=== PATIENT | male | born 2000 | race Caucasian/White ===

== ENCOUNTER 2025-06-24 15:53 | Emergency (ER) | payer OTHER, SELFPAY ==
[2025-06-24 16:06] VITALS: BP 124/73; PULSE 94; RESP 12; TEMP 37.1; O2SAT 99; BMI 19.5
--- NOTE | 2025-06-24 16:13 | ED.MALEGU ---
HPI - Male Genitourinary General Chief complaint: Urogenital-Male Stated complaint: Swelling in LT testicle, N, V Time Seen by Provider: 06/24/25 16:05 Source: patient Mode of arrival: Family Vehicle History of Present Illness HPI Narrative: 25-year-old male patient with a history of daily marijuana, alcohol and nicotine vaping who complains of worsening left testicular swelling and pain over 5 days. He was seen 3 days ago at [facility] and diagnosed with epididymitis and prescribed cephalexin and hydrocodone. He says he is not getting better and perhaps slightly worse. No fever or chills but persistent swelling, erythema and discomfort of the left testicle. No injury. His last sexual activity was 3 years ago with females. No previous STDs. Related Data Previous Rx's ?Medication ?Instructions ?Recorded levofloxacin 500 mg tablet 500 mg PO DAILY 14 days #14 tabs 06/24/25 Allergies Allergy/AdvReac Type Severity Reaction Status Date / Time No Known Drug Allergies Allergy Verified 06/24/25 16:06 Review of Systems Review of Systems ROS Unobtainable: All systems reviewed & are unremarkable except as noted in HPI and below Genitourinary Genitourinary: Reports as per HPI Patient History Social History Smoking Status: Current every day smoker Smoking Status: Current every day smoker tobacco type: cigarettes Alcohol type: beer Exam Narrative Exam Narrative: General: Alert and conversant. Mild distress. Appears well nourished and well hydrated Lungs: Nonlabored respiration Abdomen: Soft, nontender. Positive bowel sounds with no masses or distention Genital: Normal circumcised male. Left scrotal and testicular swelling with erythema and diffuse [id number] tenderness, worse posteriorly. No retraction or findings that would indicate torsion. Neuro: Alert and oriented. Cranial nerves, motor, sensory and cerebellar all grossly intact. No focal deficit Skin: Warm and normal color. No rashes Psychological: Normal affect and interaction. No evidence of delusion or psychosis. Normal mood. Initial Vital Signs Initial Vital Signs: Vital Signs Temperature 98.8 F 06/24/25 16:06 Pulse Rate 94 H 06/24/25 16:06 Respiratory Rate 12 06/24/25 16:06 Blood Pressure 124/73 06/24/25 16:06 Pulse Oximetry 99 06/24/25 16:06 Oxygen Delivery Method Room Air 06/24/25 16:06 Course Orders Ordered: ED Orders 06/24/25 16:18 CBC Auto Diff [Complete Blood Count AUTO DIFF] Stat CMP [Comprehensive Metabolic Panel] Stat Lactate (Lactic Acid) Stat 06/24/25 17:18 US scrotum Stat 06/24/25 18:24 Chlamydia Gonorrhea PCR -URINE Stat Ictotest Urine Stat Urinalysis and Microscopic Stat Discontinued Medications Acetaminophen (Acetaminophen 325 Mg Tablet) 975 mg PO NOW ONE Stop: 06/24/25 18:40 Last Admin: 06/24/25 18:41 Dose: 975 mg Documented By: MANASA Ibuprofen (Ibuprofen 400 Mg Tablet) 400 mg PO NOW ONE Stop: 06/24/25 18:25 Last Admin: 06/24/25 18:31 Dose: 400 mg Documented By: MANASA Levofloxacin (Levofloxacin 250 Mg Tablet) 500 mg PO NOW ONE Stop: 06/24/25 17:50 Last Admin: 06/24/25 18:31 Dose: 500 mg Documented By: MANASA Oxycodone/Acetaminophen (Oxycodone/Acetaminophen 5/325 Tablet) 1 tab PO NOW ONE Stop: 06/24/25 18:25 Last Admin: 06/24/25 18:42 Dose: Not Given Documented By: MANASA Vital Signs Vital signs: Vital Signs - 8 hr 06/24/25 16:06 06/24/25 19:29 Temperature 98.8 F Pulse Rate 94 H 87 Respiratory Rate 12 18 Blood Pressure 124/73 115/66 Pulse Oximetry 99 98 Oxygen Delivery Method Room Air Room Air MDM - Male Genitourinary Lab Data Attestation: I reviewed the patient's lab results. 06/24/25 16:18 06/24/25 16:18 Labs: Lab Results 06/24/25 06/24/25 Range/Units 16:18 18:24 WBC 15.3 H (4.5-11.0) X10^3/uL RBC 4.79 (4.5-5.9) X10^6/uL Hgb 14.7 (13.5-17.5) g/dL Hct 43.1 (41-53) % MCV 90.0 (80-100) fL MCH 30.6 (26-34) PG MCHC 34.0 (30-36) % RDW 13.3 (11.6-14.8) % Plt Count 298 (150-400) X10^3/uL Neut % (Auto) 75.5 H (50-75) % Lymph % (Auto) 9.2 L (25-40) % Grand % (Auto) 14.2 H (3-14) % Eos % (Auto) 0.6 L (2-4) % Baso % (Auto) 0.5 (0-2) % Neut # (Auto) 80863 H (7698-6502) /uL Lymph # (Auto) 1400 (2792-5927) /uL Grand # (Auto) 2200 H (0-900) /uL Eos # (Auto) 100 (0-450) /uL Baso # (Auto) 100 (0-100) /uL Sodium 139 (137-145) mmol/L Potassium 3.8 (3.4-5.1) mmol/L Chloride 102 (98-107) mmol/L Carbon Dioxide 26 (22-32) mmol/L BUN 9 (9-20) mg/dL Creatinine 0.98 (0.66-1.25) mg/dL Estimated GFR > 60 (>60) mL/min BUN/Creatinine Ratio 9.2 (6-22) Glucose 101 H (70-99) mg/dL Lactate 1.2 (0.7-2.1) mmol/L Calcium 9.1 (8.4-10.2) mg/dL Total Bilirubin 0.4 (0.2-1.3) mg/dL AST 71 H (17-59) IU/L ALT 79 H (<50) IU/L Alkaline Phosphatase 85 (38-126) U/L Total Protein 7.9 (6.3-8.2) g/dL Albumin 4.2 (3.5-5.0) g/dL Globulin 3.7 (1.7-4.1) g/dL Albumin/Globulin Ratio 1.1 (1.0-2.8) Urine Color Yellow Urine Appearance Clear Urine pH 7.0 (4.5-8.0) Ur Specific [place] 1.010 (1.000-1.035) Urine Protein Trace H (Negative) Urine Glucose (UA) Negative (Negative) g/dL Urine Ketones 1+ H (NEGATIVE) Urine Occult Blood Negative (Negative) Urine Nitrate Negative (Negative) Urine Bilirubin 1+ H (NEGATIVE) Ur Bilirubin Confirm Negative (Negative) Urine Urobilinogen 1.0 (0.2) E.U./dL Ur Leukocyte Esterase Negative (NEGATIVE) Urine RBC 0-1/hpf (0-5/HPF) Urine WBC 1-5/hpf (0-5/HPF) Ur Squamous Epith Cells 0-1 /hpf (0-5/HPF) Urine Bacteria Occasional (0-1) (None) Ur Culture Indicated? Cult not indicated Vol Urine Centrifuged 10ml (spun) Ur Chlamydia DNA (PCR) Not detected N gonorrhoeae DNA (PCR) Not detected Imaging Data Ultrasound scrotum: Radiologist's Impression: IMPRESSION: Heterogeneous appearance of the left testicle and epididymis with associated increased epididymal hyperemia, scrotal wall thickening and loculated left hydrocele. Findings are concerning for epididymo-orchitis. [facility] Narrative Medical decision making narrative: 17:15 I discussed the patient's care with Dr. Looney, Urology who concurs with switching antibiotics to a fluoroquinolone and he recommends a 14 day course. He is happy to see the patient and follow up if he is not improving as expected. Patient is stable and findings consistent with left epididymo-orchitis and no systemic involvement. He will be switched to levofloxacin and was started on that antibiotic here in the ER. Other instructions are scrotal support and elevation. Follow up with Urology for recheck in 2-3 days. Return to the ER if worse. Discharge Plan Departure Patient Disposition: Home Clinical Impression: Acute epididymo-orchitis, Hydrocele Instructions: Epididymitis, Hydrocele Activity Restrictions/Additional Instructions: Plan: Scrotal support and elevation. Change antibiotics to levofloxacin. Continue [id number] and prescription pain medicine as needed Follow up with Urology as needed Prescriptions: New levofloxacin 500 mg tablet 500 mg PO DAILY 14 Days Qty: 14 0RF Rx Instructions: Start 06/25/2025 Referrals: Ramses Looney DO [Physician, Urology] Referral Note: Follow up in 2-3 days for recheck Clinical Impression: Acute epididymo-orchitis; Hydrocele Stand Alone Forms: Patient Portal/API
[2025-06-24 16:27] LABS: Add Manual Diff / Slide Review NO; Hematocrit 43.1 % (41-53); Hemoglobin 14.7 g/dL (13.5-17.5); Lymphocytes Absolute Auto 1400 /uL (1100-4500); Mean Corpuscular HGB Conc 34.0 % (30-36); Mean Corpuscular Hemoglobin 30.6 PG (26-34); Mean Corpuscular Volume 90.0 fL (80-100); Platelet Count 298 X10^3/uL (150-400)
[2025-06-24 16:38] LABS: Lactate (Lactic Acid) 1.2 mmol/L (0.7-2.1)
[2025-06-24 16:39] LABS: Alanine Aminotransferase 79 IU/L (<50); Albumin 4.2 g/dL (3.5-5.0); Albumin Globulin Ratio 1.1 (1.0-2.8); Alkaline Phosphatase 85 U/L (38-126); Blood Urea Nitrogen 9 mg/dL (9-20); Calcium 9.1 mg/dL (8.4-10.2); Carbon Dioxide 26 mmol/L (22-32); Chloride 102 mmol/L (98-107); Estimated Glomerular Filt Rate > 60 mL/min (>60); Globulin 3.7 g/dL (1.7-4.1); Glucose 101 mg/dL (70-99); HEMOLYSIS < 15 (0-50); Potassium 3.8 mmol/L (3.4-5.1); Sodium 139 mmol/L (137-145); Total Protein 7.9 g/dL (6.3-8.2)
--- NOTE | 2025-06-24 17:18 | DI.US.S_ITS ---
PROCEDURE: US SCROTUM INDICATIONS: Left epididymitis, rule out abscess and torsion TECHNIQUE: Real-time scanning was performed of the scrotum and testicles, with image documentation. Color and pulse Doppler interrogation was performed of both testicles. COMPARISON: None. FINDINGS: Right: Testicle is normal in size at 4.5 x 2.1 x 2.9 cm, and homogenous in echotexture. Epididymis is normal in overall size and morphology. No hydrocele or varicoceles. Overlying scrotal skin is normal in thickness. Left: Testicle is normal in size at 4.7 x 3.0 x 3.6 cm, and homogeneous in echotexture. Epididymis is mildly increased in size with heterogeneous echotexture and increased vascularity. Loculated hydrocele. No varicoceles. Overlying scrotal skin is thickened. Doppler: Color and pulse Doppler demonstrate normal and symmetric arterial flow in both testicles. IMPRESSION: Heterogeneous appearance of the left testicle and epididymis with associated increased epididymal hyperemia, scrotal wall thickening and loculated left hydrocele. Findings are concerning for epididymo-orchitis. Approved by: Anushka Ansari M.D.,Ph.D. on 06/24/2025 at 18:35
[2025-06-24] MEDS: IBUPROFEN 400 MG TABLET PO (18:31)
[2025-06-24] MEDS: ACETAMINOPHEN 325 MG TABLET 975 MG PO (18:41)
[2025-06-24 18:48] LABS: Appearance Urine UA CLEAR; Bilirubin Urine UA 1+ (NEGATIVE); Color Urine UA YELLOW; Glucose Urine UA NEGATIVE (Negative); Ketones Urine UA 1+ (NEGATIVE); Leukocyte Esterase Urine UA NEGATIVE (NEGATIVE); Nitrite Urine UA NEGATIVE (Negative); Occult Blood Urine UA NEGATIVE (Negative); Protein Urine UA TRACE (Negative); Specific Gravity Urine UA 1.010 (1.000-1.035); Urobilinogen Urine UA 1.0 E.U./dL (0.2); pH Urine UA 7.0 (4.5-8.0)
[2025-06-24 18:56] LABS: Culture Indicated Urine Cult Not Indicated; Ictotest Urine Negative (Negative)
[2025-06-24 19:29] VITALS: BP 115/66; PULSE 87; RESP 18; O2SAT 98
[2025-06-24 20:05] LABS: Urine Chlamydia NOT DETECTED; Urine N gonorrhoeae NOT DETECTED
== END 2025-06-24 19:29 | disposition home or self-care (01) ==
PROVIDERS: Emergency Provider Emergency Medicine
DX: N45.3 Epididymo-orchitis (principal); N43.3 Hydrocele, unspecified; R11.2 Nausea with vomiting, unspecified
CPT/HCPCS: 36415; 76870; 80053; 81001; 83605; 85025; 87491; 87591; 93975; 99283